=== PATIENT | male | born 1935 | race Caucasian/White ===

== ENCOUNTER → 2023-05-31 08:34 | Outpatient (CLI) | payer OTHER, SELFPAY ==
[2023-05-31 09:53] LABS: Add Manual Diff / Slide Review NO; Basophils Absolute Auto 0 /uL (0-100); Basophils Percent Auto 0.2 % (0-2); Eosinophils Absolute Auto 100 /uL (0-450); Eosinophils Percent Auto 2.5 % (2-4); Hemoglobin 13.5 g/dL (13.5-17.5); Lymphocytes Absolute Auto 1900 /uL (1100-4500); Lymphocytes Percent Auto 36.2 % (25-40); Mean Corpuscular HGB Conc 35.5 % (30-36); Mean Corpuscular Hemoglobin 32.6 PG (26-34); Mean Corpuscular Volume 91.8 fL (80-100); Monocytes Absolute Auto 400 /uL (0-900); Monocytes Percent Auto 6.7 % (3-14); Neutrophils Absolute Auto 2900 /uL (1500-7000); Neutrophils Percent Auto 54.4 % (50-75); Platelet Count 167 X10^3/uL (150-400); Red Blood Cell Count 4.14 X10^6/uL (4.5-5.9); Red Cell Distribution Width 13.2 % (11.6-14.8); White Blood Cell Count 5.3 X10^3/uL (4.5-11.0)
[2023-05-31 10:09] LABS: Alanine Aminotransferase 7 IU/L (<50); Albumin 4.2 g/dL (3.5-5.0); Albumin Globulin Ratio 1.6 (1.0-2.8); Alkaline Phosphatase 81 U/L (38-126); Aspartate Aminotransferase 31 IU/L (17-59); Bilirubin Total 1.1 mg/dL (0.2-1.3); Blood Urea Nitrogen 29 mg/dL (9-20); Calcium 9.6 mg/dL (8.4-10.2); Carbon Dioxide 29 mmol/L (22-32); Chloride 101 mmol/L (98-107); Cholesterol 101 mg/dL (140-199); Estimated Glomerular Filt Rate > 60 mL/min (>60); Globulin 2.7 g/dL (1.7-4.1); Glucose 99 mg/dL (80-110); HDL Cholesterol 43 mg/dL (40-60); HEMOLYSIS < 15 (0-50); LDL Cholesterol Calculated 44 mg/dL (<100); Potassium 4.2 mmol/L (3.4-5.1); Sodium 139 mmol/L (137-145); Total Protein 6.9 g/dL (6.3-8.2); Triglycerides 68 mg/dL (35-150)
[2023-05-31 10:39] LABS: TSH w/ Reflex to FT4 0.97 uIU/mL (0.47-4.68)
[2023-05-31 10:59] LABS: Vitamin B12 875 pg/mL (239-931)
== END ==
PROVIDERS: Family Provider Family Medicine; PCP Internal Medicine; Referring Provider Internal Medicine; Visit Provider Internal Medicine
DX: E78.5 Hyperlipidemia, unspecified (principal); E53.8 Deficiency of other specified B group vitamins; K59.03 Drug induced constipation; I10 Essential (primary) hypertension
CPT/HCPCS: 36415; 80053; 80061; 82607; 84443; 85025

== ENCOUNTER 2023-08-04 20:52 | Emergency (ER) | payer OTHER, SELFPAY ==
[2023-08-04 21:01] VITALS: BP 165/71; PULSE 90; RESP 18; TEMP 37.2; O2SAT 97; BMI 32.4
--- NOTE | 2023-08-04 21:10 | ED.HEATRA ---
HPI - Head Injury General Chief complaint: Head Injury Stated complaint: head injury Time Seen by Provider: 08/04/23 21:08 Source: patient Mode of arrival: Wheelchair History of Present Illness HPI Narrative: Patient is an 80-year-old male. History of Parkinson's disease. Has baseline balance issues. Not on anticoagulation. This evening was taking off his coat when he lost his balance and fell. He hit the back of his head against the wall. Unsure if there was any loss of consciousness. Has not had any vomiting. Has sustained an injury to the back of his head that is bleeding. Denies neck pain. No other extremity pain. Related Data Home Medications Medication Instructions Recorded Confirmed aspirin 81 mg tablet,delayed 81 mg PO Q DAY ##0 12/13/17 release atorvastatin 40 mg tablet 40 mg PO QDAY ##0 12/13/17 cholecalciferol (vitamin D3) 50 1 tab PO QDAY ##0 12/27/17 mcg (2,000 unit) tablet (Vitamin D3) Previous Rx's Medication Instructions Recorded nystatin 100,000 unit/gram topical 1 applic topical BID #15 grams 08/04/23 powder Review of Systems Constitutional Constitutional: Reports system reviewed and no additional complaints, except as documented Musculoskeletal Musculoskeletal: Reports system reviewed and no additional complaints, except as documented Integumentary/Breasts Skin/Breast: Reports system reviewed and no additional complaints, except as documented Neurologic Neurologic: Reports system reviewed and no additional complaints, except as documented Hematologic/Lymphatic On Anticoagulants: No Patient History Surgical History (Updated 01/31/18 @ 05:53 by Conversion Provider) History of lithotripsy Family History (Updated 04/30/15 @ 00:00 by Conversion Provider) Father Cancer Sister Stomach cancer Social History Smoking Status: Former smoker Smoking Status: Former smoker alcohol intake frequency: a few times a week Alcohol type: wine Substance Use Type: does not use Exam Initial Vital Signs Initial Vital Signs: Vital Signs Temperature 98.9 F 08/04/23 21:01 Pulse Rate 90 08/04/23 21:01 Respiratory Rate 18 08/04/23 21:01 Blood Pressure 165/71 H 08/04/23 21:01 Pulse Oximetry 97 08/04/23 21:01 Oxygen Delivery Method Room Air 08/04/23 21:01 HENCO Head: abrasion, contusion, hematoma and No laceration Face and sinus: normal facial exam Back/Spine/Pelvis Cervical Spine: No cervical spinal tenderness Skin Other: Irregular abrasion in the posterior aspect of the scalp. Neuro General: patient alert, patient awake, patient oriented x3 and moves all extremities Extrem General: normal to inspection and capillary refill normal Scores GCS [place] coma scale eye opening: Spontaneous [place] coma scale verbal response: Orientated [place] coma scale motor response: Obey commands [place] coma scale total score: 15 Course Orders Ordered: ED Orders 08/04/23 21:10 CT cervical spine wo con Stat CT head/brain wo con Stat Vital Signs Vital signs: Vital Signs - 8 hr 08/04/23 21:01 08/04/23 21:11 08/04/23 21:36 Temperature 98.9 F Pulse Rate 90 86 82 Respiratory Rate 18 16 23 Blood Pressure 165/71 H Pulse Oximetry 97 98 97 Oxygen Delivery Method Room Air Room Air Room Air 08/04/23 21:44 08/04/23 21:44 08/04/23 22:00 Temperature Pulse Rate 82 81 Respiratory Rate 13 13 Blood Pressure 156/69 H Pulse Oximetry 97 98 Oxygen Delivery Method Room Air Room Air 08/04/23 22:30 08/04/23 22:30 Temperature Pulse Rate 83 Respiratory Rate 14 Blood Pressure 142/65 H Pulse Oximetry 97 Oxygen Delivery Method Room Air MDM - Head Injury Imaging Data CT - cervical spine: Radiologist's Impression: PROCEDURE: CT CERVICAL SPINE WO CON INDICATIONS: fall with head injury TECHNIQUE: Noncontrast 3 mm thick sections acquired from the skull base to the T4 level. Sagittal and coronal reformats were then constructed. For radiation dose reduction, the following was used: automated exposure control, adjustment of mA and/or kV according to patient size. COMPARISON: None. FINDINGS: Image quality: Excellent. Bones: No fractures or dislocations. Grade 1 anterolisthesis of C4 on C5. Degenerative disc disease, [id number] at C3-C4, C5-C6 and C6-C7. Bilateral facet arthropathy, severe at C3-C4 and C4-C5. Visualized superior ribs are intact. Soft tissues: Prevertebral soft tissues are normal in thickness. No paravertebral hematomas. No apical pneumothoraces. IMPRESSION: 1. No cervical spine fractures. 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 CT scan - head: Radiologist's Impression: PROCEDURE: CT HEAD/BRAIN WO CON INDICATIONS: fall with head injury TECHNIQUE: Noncontrast 4.5 mm thick angled axial sections acquired from the foramen magnum to the vertex, with coronal and sagittal reformats. For radiation dose reduction, the following was used: automated exposure control, adjustment of mA and/or kV according to patient size. COMPARISON: None. FINDINGS: Image quality: Excellent. CSF spaces: Basal cisterns are patent. No extra-axial fluid collections. The ventricles are symmetric in size and shape. Brain: No intracranial bleeds or masses. There is mild cerebral volume loss for age, with resultant ventricular and sulcal prominence. There are severe periventricular and deep white matter chronic small vessel ischemic changes. There is intracranial internal carotid artery atherosclerosis. Skull and face: Calvarium and visualized facial bones appear intact, without suspicious lesions. Right parietal scalp contusion. Sinuses: Visualized sinuses and mastoids are clear. IMPRESSION: 1. No acute intracranial abnormalities. 2. Cerebral volume loss and chronic microvascular ischemic changes. [facility] Narrative Medical decision making narrative: CT scan shows no acute pathology. He is an abrasion on the posterior aspect of his scalp but there is no laceration that would require any sort of fixation here in the ER. Not on anticoagulation. He is no extremity injuries. Will discharge patient home with care instructions and return precautions. With the patient and his who is at bedside expressed understanding and agreement with plan. Discharge Plan Departure Patient Disposition: Home Clinical Impression: Contusion of scalp, Closed head injury, Abrasion of scalp Instructions: DI for Closed Head Injury Activity Restrictions/Additional Instructions: You can shower like normal. You can use soap and water over the abrasion. You can put ice over the area as well if needed. You have no restrictions on your activities. Continue to take all of your medications as directed. Use the nystatin powder 2 times a day until the rash in your groin is improved. Return to the emergency department for new symptoms. Prescriptions: New nystatin 100,000 unit/gram powder 1 applic topical BID Qty: 15 3RF No Action atorvastatin 40 MG tablet 40 mg PO QDAY Qty: 0 aspirin 81 MG tablet,delayed release (DR/EC) 81 mg PO Q DAY Qty: 0 cholecalciferol (vitamin D3) [Vitamin D3] 2,000 UNIT tablet 1 tab PO QDAY Qty: 0 Referrals: Al Melton MD [Primary Care Provider] - Stand Alone Forms: Patient Portal/API
[2023-08-04 21:11] VITALS: PULSE 86; RESP 16; O2SAT 98
[2023-08-04 21:36] VITALS: PULSE 82; RESP 23; O2SAT 97
[2023-08-04 21:44] VITALS: BP 156/69; PULSE 82; RESP 13; O2SAT 97
[2023-08-04 22:00] VITALS: PULSE 81; RESP 13; O2SAT 98
[2023-08-04 22:30] VITALS: BP 142/65; PULSE 83; RESP 14; O2SAT 97
== END 2023-08-04 22:59 | disposition home or self-care (01) ==
PROVIDERS: Emergency Provider Emergency Medicine; Family Provider Internal Medicine; PCP Internal Medicine
DX: S09.90XA Unspecified injury of head, initial encounter (principal); S00.03XA Contusion of scalp, initial encounter; S00.01XA Abrasion of scalp, initial encounter; W18.30XA Fall on same level, unspecified, initial encounter; G20.A1 Parkinson's disease without dyskinesia, without mention of fluctuations
CPT/HCPCS: 70450; 72125; 99281; 99284

== ENCOUNTER 2023-11-04 13:45 | Outpatient (RCR) | payer OTHER, SELFPAY ==
--- NOTE | 2023-08-29 17:55 | PT.OIE ---
Current Diagnoses Parkinsonism, unspecified (08/29/23) Unsteadiness on feet (08/29/23) Other abnormalities of gait and mobility (08/29/23) History of falling (08/29/23) Past Surgical History History of lithotripsy Visit Care Team Role Provider Type Al Melton MD Attending Provider Non-Staff Family Provider Primary Care Provider Referring Provider Specialty: Internal Medicine Address: [facility] [address], [place], [address] Email: Physical Therapy Initial Evaluation PT-OP-A Visit Information Start: 08/29/23 16:41 Freq: Status: Active Protocol: Document 08/29/23 14:30 DCW (Rec: 08/29/23 16:46 DCW [id number]) Out-Patient Physical Therapy Visit Information Visit Information Visit Type Initial Evaluation Visit Start Time 14:30 Visit Stop Time 15:15 Total Visit Minutes 45 Visit Number 1 Number of DESIGN AGENT Visits 0 Evaluation Information Evaluation Date 08/29/23 PT-OP-B Current Condition Start: 08/29/23 16:41 Freq: Status: Active Protocol: Document 08/29/23 14:30 DCW (Rec: 08/29/23 17:55 DCW [id number]) Current Condition History of Current Condition Current Complaints Falls, poor balance, fear of falling, unsteadiness secondary to Parkinson's History of Current Condition Pt is an 88 year old male presenting with a history of falls, imbalance, and gait difficulty secondary to Parkinson's Disease. Pt suffered a fall last month, when he was trying to put on a jacket, fell backwards, and hit his head on the wall, resulting in a trip to the ED. Pt reports he feels like he weaves back and forth, especially when first standing up, and often feels weak in the legs and arms. Unhappy with how slowly he moves. Typically uses a trekking pole for gait, but does have a 4WW that he occasionally uses as well. , who dropped pt off for his evaluation, also feels his speech has gotten worse recently, and he often needs to be asked to repeat himself. PT-OP-C Subjective Start: 08/29/23 16:41 Freq: Status: Active Protocol: Document 08/29/23 14:30 DCW (Rec: 08/29/23 17:55 DCW [id number]) OP-PT Subjective Patient Comments Patient Comments I have a recumbent bike that I can use at home. Patient Reported Progress Worse PT-OP-D Balance Start: 08/29/23 16:41 Freq: Status: Active Protocol: Document 08/29/23 14:30 DCW (Rec: 08/29/23 16:46 DCW [id number]) OP-PT Balance Assessment Sitting Balance Static Sitting Balance Ability Good Dynamic Sitting Balance Ability Good Standing Balance Static Standing Balance Ability Fair Dynamic Standing Balance Ability Good Balance Tests Ventura Balance Test Ventura Balance Test Score 32/56 Ventura Balance Assessment Evaluation Sitting to Standing Ability Several Tries w/Hands Unsupported Stance Supervision- 2 minutes Sitting Unsupported, Feet on Floor Safely- 2 minutes Standing to Sitting Ability Assist, Control w/Hands Transfer Ability Supervision, Verbal Cues Unsupported Stance- Eyes Closed Supervision, 10 seconds Unsupported Stance- Eyes Open Independent, <30 seconds Reaching Forward Standing Safely, 5 inches Pick- Up Object From Floor Requires Supervision Look Behind Shoulder - Standing Turns Sideways Only Turning 360 Degrees Turns slowly, but safely Unsupported Stance, Alternating Feet on (I)- 8 Steps in > 20 secs Stair Unsupported Tandem Stance Small Step- 30 seconds Unilateral Leg Stance Unable,assist to not fall Total Score Ventura Total Score (out of 56 points) 32 Brito Fall Scale Copyright Permission PT-OP-E Functional Tests Start: 08/29/23 16:41 Freq: Status: Active Protocol: Document 08/29/23 14:30 DCW (Rec: 08/29/23 16:46 DCW [id number]) Functional Tests 30 Second Sit to Stand Test Score 3 repetitions Comments UE assist Dynamic Gait Index (DGI) Score 20/24 DGI Impairment Rating 1 to <20% Impaired (Score 20- 23) PT-OP-M Strength Start: 08/29/23 16:41 Freq: Status: Active Protocol: Document 08/29/23 14:30 DCW (Rec: 08/29/23 17:55 DCW [id number]) Hip Strength Hip Manual Muscle Testing Right Flexion (L2) 4+ Good+ Abduction 4+ Good+ Adduction 4+ Good+ Left Flexion (L2) 4+ Good+ Abduction 4+ Good+ Adduction 4+ Good+ Knee Strength Knee Manual Muscle Testing Right Flexion (S2) 4+ Good+ Extension (L3) 4+ Good+ Left Flexion (S2) 4- Good- Extension (L3) 4+ Good+ PT-OP-T Assessment and Plan Start: 08/29/23 16:41 Freq: Status: Active Protocol: Document 08/29/23 14:30 DCW (Rec: 08/29/23 17:55 DCW [id number]) Physical Therapy Assessment Rehab Potential Rehabilitation Potential Good Evaluation Complexity Number of Personal Factors/Comorbidities 3 or More Number of Body Systems Impaired 4 or More Clinical Presentation at Evaluation Unstable Impairments Impairments Activity Tolerance,Balance, Coordination,Functional Activities,Functional Mobility ,Gait,Soft Tissue Mobility, Strength,Tone Goals Three Impairment Pt scores as a falls risk with a 32/56 on the Ventura Balance Scale Irrigation Manager Goal (LTG) Pt to improve Ventura Score by at least 8 points to 40/56 in order to demonstrate decreased risk of falls. LTG Duration 11/27/23 Two Impairment Pt performs 3 repetitions during 30 second sit to stand Irrigation Manager Goal (LTG) Pt to increase repetitions during 30 second Sit to Stand by at least 5 to 8 total repetitions to demonstrate improved activity tolerance LTG Duration 11/27/23 One Impairment Pt does not have an appropriate home exercise program Short Term Goal (STG) Pt to be independent and compliant with an appropriate HEP STG Duration 09/28/23 Assessment Summary Assessment Pt presents with signs and symptoms consistent with referring diagnosis of Parkinson's Disease. Per Ventura score (32/56), pt is at a significantly increased risk of falls, particularly with static balance. Pt does much better with dynamic balance, scoring a 20/24 on the DGI. Pt also shows a good LE strength base to work from scoring 4+/ 5 in all tested planes other than 4-/5 with left knee flexion. Pt should benefit from skilled therapy focusing on gait, stability, balance training, and improving activity tolerance, with the understanding of the limitations of improvement based on the progressive nature of Parkinson's Disease. If pt does not progress as expected, pt may benefit from a trial of LSVT BIG to work on a more Parkinson's-specific, intensive rehab course, and additionally potentially from a referral for Speech Therapy for LSVT LOUD, based on pt's 's complaints of worsening problems with pt's speech. Physical Therapy Plan Frequency and Duration Frequency of Treatment 2x/Week Plan of Care Start Date 08/29/23 Plan of Care End Date 11/27/23 Therapeutic Interventions Therapeutic Interventions Balance Training,Gait Training ,Home Exercise Program,Manual Therapy,Neuromuscular Re- education,Patient/Caregiver Education,Self-Care/Home Management,Soft Tissue Mobilization,Therapeutic Activities,Therapeutic Exercises Next Visit Focus/Plan Next Note Type Treatment Note Next Visit Plan Activity tolerance, gait training, balance challenges, strengthening
--- NOTE | 2023-08-29 17:56 | PT.OPPOC ---
Physical, Occupational & Speech Therapy At [facility] Current Diagnoses Parkinsonism, unspecified (08/29/23) Unsteadiness on feet (08/29/23) Other abnormalities of gait and mobility (08/29/23) History of falling (08/29/23) Visit Care Team Role Provider Type Al Melton MD Attending Provider Non-Staff Family Provider Primary Care Provider Referring Provider Specialty: Internal Medicine Address: [address] [place] [address] [address], [place], [address] Email: Plan Of Care PT-OP-T Assessment and Plan Start: 08/29/23 16:41 Freq: Status: Active Protocol: Document 08/29/23 14:30 DCW (Rec: 08/29/23 17:55 DCW [id number]) Physical Therapy Assessment Rehab Potential Rehabilitation Potential Good Evaluation Complexity Number of Personal Factors/Comorbidities 3 or More Number of Body Systems Impaired 4 or More Clinical Presentation at Evaluation Unstable Impairments Impairments Activity Tolerance,Balance, Coordination,Functional Activities,Functional Mobility ,Gait,Soft Tissue Mobility, Strength,Tone Goals Three Impairment Pt scores as a falls risk with a 32/56 on the Ventura Balance Scale Security Software Engineer Goal (LTG) Pt to improve Ventura Score by at least 8 points to 40/56 in order to demonstrate decreased risk of falls. LTG Duration 11/27/23 Two Impairment Pt performs 3 repetitions during 30 second sit to stand Security Software Engineer Goal (LTG) Pt to increase repetitions during 30 second Sit to Stand by at least 5 to 8 total repetitions to demonstrate improved activity tolerance LTG Duration 11/27/23 One Impairment Pt does not have an appropriate home exercise program Short Term Goal (STG) Pt to be independent and compliant with an appropriate HEP STG Duration 09/28/23 Assessment Summary Assessment Pt presents with signs and symptoms consistent with referring diagnosis of Parkinson's Disease. Per Ventura score (32/56), pt is at a significantly increased risk of falls, particularly with static balance. Pt does much better with dynamic balance, scoring a 20/24 on the DGI. Pt also shows a good LE strength base to work from scoring 4+/ 5 in all tested planes other than 4-/5 with left knee flexion. Pt should benefit from skilled therapy focusing on gait, stability, balance training, and improving activity tolerance, with the understanding of the limitations of improvement based on the progressive nature of Parkinson's Disease. If pt does not progress as expected, pt may benefit from a trial of LSVT BIG to work on a more Parkinson's-specific, intensive rehab course, and additionally potentially from a referral for Speech Therapy for LSVT LOUD, based on pt's 's complaints of worsening problems with pt's speech. Physical Therapy Plan Frequency and Duration Frequency of Treatment 2x/Week Plan of Care Start Date 08/29/23 Plan of Care End Date 11/27/23 Therapeutic Interventions Therapeutic Interventions Balance Training,Gait Training ,Home Exercise Program,Manual Therapy,Neuromuscular Re- education,Patient/Caregiver Education,Self-Care/Home Management,Soft Tissue Mobilization,Therapeutic Activities,Therapeutic Exercises Next Visit Focus/Plan Next Note Type Treatment Note Next Visit Plan Activity tolerance, gait training, balance challenges, strengthening Plan of Care Dates Plan of Care Start Date 08/29/23 Plan of Care End Date 11/27/23 Electronically Signed by: Raleigh Crawford, PT 08/29/23 4485 If you are in agreement with this Plan of Care, please return a signed and dated copy. I have reviewed this Plan of Care and certify that the skilled therapy services above are required to meet the patient?s needs. Physician Signature Date Printed Name and Credentials Clinical Instructor Signature Printed Name and Credentials
--- NOTE | 2023-09-01 15:14 | PT.OTN ---
Current Diagnoses Parkinsonism, unspecified (09/01/23) Unsteadiness on feet (09/01/23) Other abnormalities of gait and mobility (09/01/23) History of falling (09/01/23) Physical Therapy Treatment Note PT-OP-A Visit Information Start: 08/29/23 16:41 Freq: Status: Active Protocol: Document 09/01/23 14:30 DCW (Rec: 09/01/23 15:14 DCW [id number]) Out-Patient Physical Therapy Visit Information Visit Information Visit Type Treatment Note Visit Start Time 14:30 Visit Stop Time 15:15 Total Visit Minutes 45 Visit Number 2 Number of TICKET SCHEDULER Visits 0 Evaluation Information Evaluation Date 08/29/23 PT-OP-B Current Condition Start: 08/29/23 16:41 Freq: Status: Active Protocol: Document 08/29/23 14:30 DCW (Rec: 08/29/23 17:55 DCW [id number]) Current Condition History of Current Condition Current Complaints Falls, poor balance, fear of falling, unsteadiness secondary to Parkinson's History of Current Condition Pt is an 88 year old male presenting with a history of falls, imbalance, and gait difficulty secondary to Parkinson's Disease. Pt suffered a fall last month, when he was trying to put on a jacket, fell backwards, and hit his head on the wall, resulting in a trip to the ED. Pt reports he feels like he weaves back and forth, especially when first standing up, and often feels weak in the legs and arms. Unhappy with how slowly he moves. Typically uses a trekking pole for gait, but does have a 4WW that he occasionally uses as well. , who dropped pt off for his evaluation, also feels his speech has gotten worse recently, and he often needs to be asked to repeat himself. PT-OP-C Subjective Start: 08/29/23 16:41 Freq: Status: Active Protocol: Document 09/01/23 14:30 DCW (Rec: 09/01/23 15:14 DCW [id number]) OP-PT Subjective Patient Comments Patient Comments Feeling about normal for this stage of life. PT-OP-D Balance Start: 08/29/23 16:41 Freq: Status: Active Protocol: Document 08/29/23 14:30 DCW (Rec: 08/29/23 16:46 DCW [id number]) OP-PT Balance Assessment Sitting Balance Static Sitting Balance Ability Good Dynamic Sitting Balance Ability Good Standing Balance Static Standing Balance Ability Fair Dynamic Standing Balance Ability Good Balance Tests Ventura Balance Test Ventura Balance Test Score 32/56 Ventura Balance Assessment Evaluation Sitting to Standing Ability Several Tries w/Hands Unsupported Stance Supervision- 2 minutes Sitting Unsupported, Feet on Floor Safely- 2 minutes Standing to Sitting Ability Assist, Control w/Hands Transfer Ability Supervision, Verbal Cues Unsupported Stance- Eyes Closed Supervision, 10 seconds Unsupported Stance- Eyes Open Independent, <30 seconds Reaching Forward Standing Safely, 5 inches Pick- Up Object From Floor Requires Supervision Look Behind Shoulder - Standing Turns Sideways Only Turning 360 Degrees Turns slowly, but safely Unsupported Stance, Alternating Feet on (I)- 8 Steps in > 20 secs Stair Unsupported Tandem Stance Small Step- 30 seconds Unilateral Leg Stance Unable,assist to not fall Total Score Ventura Total Score (out of 56 points) 32 Brito Fall Scale Copyright Permission PT-OP-E Functional Tests Start: 08/29/23 16:41 Freq: Status: Active Protocol: Document 08/29/23 14:30 DCW (Rec: 08/29/23 16:46 DCW [id number]) Functional Tests 30 Second Sit to Stand Test Score 3 repetitions Comments UE assist Dynamic Gait Index (DGI) Score 20/24 DGI Impairment Rating 1 to <20% Impaired (Score 20- 23) PT-OP-M Strength Start: 08/29/23 16:41 Freq: Status: Active Protocol: Document 08/29/23 14:30 DCW (Rec: 08/29/23 17:55 DCW [id number]) Hip Strength Hip Manual Muscle Testing Right Flexion (L2) 4+ Good+ Abduction 4+ Good+ Adduction 4+ Good+ Left Flexion (L2) 4+ Good+ Abduction 4+ Good+ Adduction 4+ Good+ Knee Strength Knee Manual Muscle Testing Right Flexion (S2) 4+ Good+ Extension (L3) 4+ Good+ Left Flexion (S2) 4- Good- Extension (L3) 4+ Good+ PT-OP-Q Treatments Start: 08/29/23 16:41 Freq: Status: Active Protocol: Document 09/01/23 14:30 DCW (Rec: 09/01/23 15:14 DCW [id number]) Cardio Equipment Recumbent Stepper (Sci-Fit) Duration (Minutes) 5 Resistance 3 Seat Position 9 Gym Equipment Shuttle Balance Red Details WBOS, Staggered Therapeutic Exercises Other Exercises Resisted Ambulation Other Exercise Name Resisted Side-stepping Resistance Yellow Neuro Re-Education Treatment Balance Activities Foam Stance Details NBOS (EO/EC) Surface Blue foam Tandem Details Semi-tandem Stance Equipment // bars Hurdles Details Hurdles Comments Fwd, Sidestepping Stepping Stones Details Stepping stones on uneven blue foam hill Comments Hurdles PT-OP-T Assessment and Plan Start: 08/29/23 16:41 Freq: Status: Active Protocol: Document 09/01/23 14:30 DCW (Rec: 09/01/23 15:14 DCW [id number]) Physical Therapy Assessment Impairments Impairments Activity Tolerance,Balance, Coordination,Functional Activities,Functional Mobility ,Gait,Soft Tissue Mobility, Strength,Tone Goals Three Impairment Pt scores as a falls risk with a 32/56 on the Ventura Balance Scale Usp Goal (LTG) Pt to improve Ventura Score by at least 8 points to 40/56 in order to demonstrate decreased risk of falls. LTG Duration 11/27/23 Two Impairment Pt performs 3 repetitions during 30 second sit to stand Used Car Renovator Goal (LTG) Pt to increase repetitions during 30 second Sit to Stand by at least 5 to 8 total repetitions to demonstrate improved activity tolerance LTG Duration 11/27/23 One Impairment Pt does not have an appropriate home exercise program Short Term Goal (STG) Pt to be independent and compliant with an appropriate HEP STG Duration 09/28/23 Assessment Summary Assessment Pt tolerated treatment well, noted some difficulty with most balance challenges, but felt they were good for him and he was excited to try them at home. Physical Therapy Plan Frequency and Duration Frequency of Treatment 2x/Week Plan of Care Start Date 08/29/23 Plan of Care End Date 11/27/23 Therapeutic Interventions Therapeutic Interventions Balance Training,Gait Training ,Home Exercise Program,Manual Therapy,Neuromuscular Re- education,Patient/Caregiver Education,Self-Care/Home Management,Soft Tissue Mobilization,Therapeutic Activities,Therapeutic Exercises Next Visit Focus/Plan Next Note Type Treatment Note Next Visit Plan Activity tolerance, gait training, balance challenges, strengthening
--- NOTE | 2023-09-05 18:21 | PT.OTN ---
Current Diagnoses Parkinsonism, unspecified (09/05/23) Unsteadiness on feet (09/05/23) Other abnormalities of gait and mobility (09/05/23) History of falling (09/05/23) Physical Therapy Treatment Note PT-OP-A Visit Information Start: 08/29/23 16:41 Freq: Status: Active Protocol: Document 09/05/23 14:34 NBM (Rec: 09/05/23 15:20 NBM [id number]) Out-Patient Physical Therapy Visit Information Visit Information Visit Type Treatment Note Visit Start Time 14:35 Visit Stop Time 15:19 Total Visit Minutes 44 Visit Number 3 Number of PLANT SCIENCES PROFESSOR Visits 1 PT-OP-B Current Condition Start: 08/29/23 16:41 Freq: Status: Active Protocol: Document 08/29/23 14:30 DCW (Rec: 08/29/23 17:55 DCW [id number]) Current Condition History of Current Condition Current Complaints Falls, poor balance, fear of falling, unsteadiness secondary to Parkinson's History of Current Condition Pt is an 88 year old male presenting with a history of falls, imbalance, and gait difficulty secondary to Parkinson's Disease. Pt suffered a fall last month, when he was trying to put on a jacket, fell backwards, and hit his head on the wall, resulting in a trip to the ED. Pt reports he feels like he weaves back and forth, especially when first standing up, and often feels weak in the legs and arms. Unhappy with how slowly he moves. Typically uses a trekking pole for gait, but does have a 4WW that he occasionally uses as well. , who dropped pt off for his evaluation, also feels his speech has gotten worse recently, and he often needs to be asked to repeat himself. PT-OP-C Subjective Start: 08/29/23 16:41 Freq: Status: Active Protocol: Document 09/05/23 14:34 NBM (Rec: 09/05/23 15:20 NBM [id number]) OP-PT Subjective Patient Comments Patient Comments Luis reports he's tried the balance ex's at home and it wasn't wonderful, it was fair. PT-OP-D Balance Start: 08/29/23 16:41 Freq: Status: Active Protocol: Document 08/29/23 14:30 DCW (Rec: 08/29/23 16:46 DCW [id number]) OP-PT Balance Assessment Sitting Balance Static Sitting Balance Ability Good Dynamic Sitting Balance Ability Good Standing Balance Static Standing Balance Ability Fair Dynamic Standing Balance Ability Good Balance Tests Ventura Balance Test Ventura Balance Test Score 32/56 Ventura Balance Assessment Evaluation Sitting to Standing Ability Several Tries w/Hands Unsupported Stance Supervision- 2 minutes Sitting Unsupported, Feet on Floor Safely- 2 minutes Standing to Sitting Ability Assist, Control w/Hands Transfer Ability Supervision, Verbal Cues Unsupported Stance- Eyes Closed Supervision, 10 seconds Unsupported Stance- Eyes Open Independent, <30 seconds Reaching Forward Standing Safely, 5 inches Pick- Up Object From Floor Requires Supervision Look Behind Shoulder - Standing Turns Sideways Only Turning 360 Degrees Turns slowly, but safely Unsupported Stance, Alternating Feet on (I)- 8 Steps in > 20 secs Stair Unsupported Tandem Stance Small Step- 30 seconds Unilateral Leg Stance Unable,assist to not fall Total Score Ventura Total Score (out of 56 points) 32 Brito Fall Scale Copyright Permission PT-OP-E Functional Tests Start: 08/29/23 16:41 Freq: Status: Active Protocol: Document 08/29/23 14:30 DCW (Rec: 08/29/23 16:46 [facility] [id number]) Functional Tests 30 Second Sit to Stand Test Score 3 repetitions Comments UE assist Dynamic Gait Index (DGI) Score 20/24 DGI Impairment Rating 1 to <20% Impaired (Score 20- 23) PT-OP-M Strength Start: 08/29/23 16:41 Freq: Status: Active Protocol: Document 08/29/23 14:30 DCW (Rec: 08/29/23 17:55 DC [id number]) Hip Strength Hip Manual Muscle Testing Right Flexion (L2) 4+ Good+ Abduction 4+ Good+ Adduction 4+ Good+ Left Flexion (L2) 4+ Good+ Abduction 4+ Good+ Adduction 4+ Good+ Knee Strength Knee Manual Muscle Testing Right Flexion (S2) 4+ Good+ Extension (L3) 4+ Good+ Left Flexion (S2) 4- Good- Extension (L3) 4+ Good+ PT-OP-Q Treatments Start: 08/29/23 16:41 Freq: Status: Active Protocol: Document 09/05/23 14:34 NBM (Rec: 12/04/23 15:20 [facility] [id number]) Cardio Equipment Recumbent Stepper (Sci-Fit) Duration (Minutes) 5 Resistance 3 Seat Position 9 Gym Equipment Shuttle Balance Red Details A/P weightshifting WBOS, Staggered; M/L weightshifting Reps/Duration 8 min Comments Balloon volleyball: WBOS, NBOS 2 TOOL AND FIXTURE REPAIRER> 1HHA Therapeutic Exercises Other Exercises Resisted Ambulation Other Exercise Name Resisted Side-stepping Resistance Yellow Neuro Re-Education Treatment Balance Activities Foam Stance Details NBOS (EO/EC) Surface Blue foam Tandem Details Semi-tandem Stance Equipment // bars Hurdles Details Hurdles Comments Fwd, Sidestepping Stepping Stones Details Stepping stones on uneven blue foam hill Comments Hurdles Coordination Activities tandem walking Equipment // bars PT-OP-T Assessment and Plan Start: 08/29/23 16:41 Freq: Status: Active Protocol: Document 09/05/23 14:34 [facility] (Rec: 09/05/23 15:20 [facility] [id number]) Physical Therapy Assessment Goals Three Impairment Pt scores as a falls risk with a 32/56 on the Ventura Balance Scale Catalyst Concentration Operator Goal (LTG) Pt to improve Ventura Score by at least 8 points to 40/56 in order to demonstrate decreased risk of falls. LTG Duration 11/27/23 Two Impairment Pt performs 3 repetitions during 30 second sit to stand Detention Goal (LTG) Pt to increase repetitions during 30 second Sit to Stand by at least 5 to 8 total repetitions to demonstrate improved activity tolerance LTG Duration 11/27/23 One Impairment Pt does not have an appropriate home exercise program Short Term Goal (STG) Pt to be independent and compliant with an appropriate HEP STG Duration 09/28/23 Assessment Summary Assessment Luis requires cues for neutral foot positioning and eccentric control with resisted sidestepping. He requires cues for excessive hip rotation and neutral foot positioning with lateral steps bilaterally over hurdles and is able to clear 6 hurdles x2 with TOOL AND FIXTURE REPAIRER prn after cueing. He demonstrates increased confidence on Shuttle Balance in WBOS and NBOS with balloon volleyball. Physical Therapy Plan Frequency and Duration Frequency of Treatment 2x/Week Plan of Care Start Date 08/29/23 Plan of Care End Date 11/27/23 Therapeutic Interventions Therapeutic Interventions Balance Training,Gait Training ,Home Exercise Program,Manual Therapy,Neuromuscular Re- education,Patient/Caregiver Education,Self-Care/Home Management,Soft Tissue Mobilization,Therapeutic Activities,Therapeutic Exercises Next Visit Focus/Plan Next Note Type Treatment Note Next Visit Plan Activity tolerance, gait training, balance challenges, strengthening
--- NOTE | 2023-09-08 15:15 | PT.OTN ---
Current Diagnoses Parkinsonism, unspecified (09/08/23) Unsteadiness on feet (09/08/23) Other abnormalities of gait and mobility (09/08/23) History of falling (09/08/23) Physical Therapy Treatment Note PT-OP-A Visit Information Start: 08/29/23 16:41 Freq: Status: Active Protocol: Document 09/08/23 14:30 DCW (Rec: 09/08/23 15:15 DCW [id number]) Out-Patient Physical Therapy Visit Information Visit Information Visit Type Treatment Note Visit Start Time 14:30 Visit Stop Time 15:15 Total Visit Minutes 45 Visit Number 4 Number of SHERIFF'S OFFICER Visits 0 Evaluation Information Evaluation Date 08/29/23 PT-OP-B Current Condition Start: 08/29/23 16:41 Freq: Status: Active Protocol: Document 08/29/23 14:30 DCW (Rec: 08/29/23 17:55 DCW [id number]) Current Condition History of Current Condition Current Complaints Falls, poor balance, fear of falling, unsteadiness secondary to Parkinson's History of Current Condition Pt is an 88 year old male presenting with a history of falls, imbalance, and gait difficulty secondary to Parkinson's Disease. Pt suffered a fall last month, when he was trying to put on a jacket, fell backwards, and hit his head on the wall, resulting in a trip to the ED. Pt reports he feels like he weaves back and forth, especially when first standing up, and often feels weak in the legs and arms. Unhappy with how slowly he moves. Typically uses a trekking pole for gait, but does have a 4WW that he occasionally uses as well. , who dropped pt off for his evaluation, also feels his speech has gotten worse recently, and he often needs to be asked to repeat himself. PT-OP-C Subjective Start: 08/29/23 16:41 Freq: Status: Active Protocol: Document 09/08/23 14:30 DCW (Rec: 09/08/23 15:15 DCW [id number]) OP-PT Subjective Patient Comments Patient Comments Not as good today as I was yesterday. Notes some low back soreness today. PT-OP-D Balance Start: 08/29/23 16:41 Freq: Status: Active Protocol: Document 08/29/23 14:30 DCW (Rec: 08/29/23 16:46 DCW [id number]) OP-PT Balance Assessment Sitting Balance Static Sitting Balance Ability Good Dynamic Sitting Balance Ability Good Standing Balance Static Standing Balance Ability Fair Dynamic Standing Balance Ability Good Balance Tests Ventura Balance Test Ventura Balance Test Score 32/56 Ventura Balance Assessment Evaluation Sitting to Standing Ability Several Tries w/Hands Unsupported Stance Supervision- 2 minutes Sitting Unsupported, Feet on Floor Safely- 2 minutes Standing to Sitting Ability Assist, Control w/Hands Transfer Ability Supervision, Verbal Cues Unsupported Stance- Eyes Closed Supervision, 10 seconds Unsupported Stance- Eyes Open Independent, <30 seconds Reaching Forward Standing Safely, 5 inches Pick- Up Object From Floor Requires Supervision Look Behind Shoulder - Standing Turns Sideways Only Turning 360 Degrees Turns slowly, but safely Unsupported Stance, Alternating Feet on (I)- 8 Steps in > 20 secs Stair Unsupported Tandem Stance Small Step- 30 seconds Unilateral Leg Stance Unable,assist to not fall Total Score Ventura Total Score (out of 56 points) 32 Brito Fall Scale Copyright Permission PT-OP-E Functional Tests Start: 08/29/23 16:41 Freq: Status: Active Protocol: Document 08/29/23 14:30 DCW (Rec: 08/29/23 16:46 DCW [id number]) Functional Tests 30 Second Sit to Stand Test Score 3 repetitions Comments UE assist Dynamic Gait Index (DGI) Score 20/24 DGI Impairment Rating 1 to <20% Impaired (Score 20- 23) PT-OP-M Strength Start: 08/29/23 16:41 Freq: Status: Active Protocol: Document 08/29/23 14:30 DCW (Rec: 08/29/23 17:55 DCW [id number]) Hip Strength Hip Manual Muscle Testing Right Flexion (L2) 4+ Good+ Abduction 4+ Good+ Adduction 4+ Good+ Left Flexion (L2) 4+ Good+ Abduction 4+ Good+ Adduction 4+ Good+ Knee Strength Knee Manual Muscle Testing Right Flexion (S2) 4+ Good+ Extension (L3) 4+ Good+ Left Flexion (S2) 4- Good- Extension (L3) 4+ Good+ PT-OP-Q Treatments Start: 08/29/23 16:41 Freq: Status: Active Protocol: Document 09/08/23 14:30 DCW (Rec: 09/08/23 15:15 DCW [id number]) Cardio Equipment Recumbent Stepper (Sci-Fit) Duration (Minutes) 6 Resistance 3 Seat Position 9 Gym Equipment Shuttle Recovery Unilateral Squats Resistance 37# (one new) Bilateral Squats Resistance 62# (two new) Shuttle Balance Red Details WBOS, Staggered Therapeutic Exercises Other Exercises Sit Stand Other Exercise Name Sit to Stand Neuro Re-Education Treatment Balance Activities SLS Details SLS Equipment // bars Comments Added to HEP NBOS Details NBOS EO/EC Equipment // bars Comments Added to HEP Foam Stance Details NBOS (EO/EC) Surface Blue foam Tandem Details Semi-tandem Stance Equipment // bars Comments Added to HEP Hurdles Details Hurdles Comments Fwd, Sidestepping PT-OP-T Assessment and Plan Start: 08/29/23 16:41 Freq: Status: Active Protocol: Document 09/08/23 14:30 DCW (Rec: 09/08/23 15:15 DCW [id number]) Physical Therapy Assessment Impairments Impairments Activity Tolerance,Balance, Coordination,Functional Activities,Functional Mobility ,Gait,Soft Tissue Mobility, Strength,Tone Goals Three Impairment Pt scores as a falls risk with a 32/56 on the Ventura Balance Scale [place] Laborer Goal (LTG) Pt to improve Ventura Score by at least 8 points to 40/56 in order to demonstrate decreased risk of falls. LTG Duration 11/27/23 Two Impairment Pt performs 3 repetitions during 30 second sit to stand [place] Laborer Goal (LTG) Pt to increase repetitions during 30 second Sit to Stand by at least 5 to 8 total repetitions to demonstrate improved activity tolerance LTG Duration 11/27/23 One Impairment Pt does not have an appropriate home exercise program Short Term Goal (STG) Pt to be independent and compliant with an appropriate HEP STG Duration 09/28/23 Assessment Summary Assessment Pt thankful for HEP HO, doing well with balance challenges today. Was slightly limited with some movement due to low back stiffness, but loosened up as session proceeded. Continue to focus on functional movements and balance challenges. Physical Therapy Plan Frequency and Duration Frequency of Treatment 2x/Week Plan of Care Start Date 08/29/23 Plan of Care End Date 11/27/23 Therapeutic Interventions Therapeutic Interventions Balance Training,Gait Training ,Home Exercise Program,Manual Therapy,Neuromuscular Re- education,Patient/Caregiver Education,Self-Care/Home Management,Soft Tissue Mobilization,Therapeutic Activities,Therapeutic Exercises Next Visit Focus/Plan Next Note Type Treatment Note Next Visit Plan Activity tolerance, gait training, balance challenges, strengthening
--- NOTE | 2023-09-13 13:51 | PT.OTN ---
Current Diagnoses Parkinsonism, unspecified (09/13/23) Unsteadiness on feet (09/13/23) Other abnormalities of gait and mobility (09/13/23) History of falling (09/13/23) Physical Therapy Treatment Note PT-OP-A Visit Information Start: 08/29/23 16:41 Freq: Status: Active Protocol: Document 09/13/23 13:08 NBM (Rec: 09/13/23 13:51 NB [id number]) Out-Patient Physical Therapy Visit Information Visit Information Visit Type Treatment Note Visit Start Time 13:05 Visit Stop Time 13:46 Total Visit Minutes 41 Visit Number 5 Number of FIRE CONTROL SYSTEM INSTALLER Visits 1 PT-OP-B Current Condition Start: 08/29/23 16:41 Freq: Status: Active Protocol: Document 08/29/23 14:30 DCW (Rec: 08/29/23 17:55 DCW [id number]) Current Condition History of Current Condition Current Complaints Falls, poor balance, fear of falling, unsteadiness secondary to Parkinson's History of Current Condition Pt is an 88 year old male presenting with a history of falls, imbalance, and gait difficulty secondary to Parkinson's Disease. Pt suffered a fall last month, when he was trying to put on a jacket, fell backwards, and hit his head on the wall, resulting in a trip to the ED. Pt reports he feels like he weaves back and forth, especially when first standing up, and often feels weak in the legs and arms. Unhappy with how slowly he moves. Typically uses a trekking pole for gait, but does have a 4WW that he occasionally uses as well. , who dropped pt off for his evaluation, also feels his speech has gotten worse recently, and he often needs to be asked to repeat himself. PT-OP-C Subjective Start: 08/29/23 16:41 Freq: Status: Active Protocol: Document 09/13/23 13:08 NBM (Rec: 09/13/23 13:51 NB [id number]) OP-PT Subjective Patient Comments Patient Comments Pt reports doing his ex's but still feeling like he has weak muscles. PT-OP-D Balance Start: 08/29/23 16:41 Freq: Status: Active Protocol: Document 08/29/23 14:30 DCW (Rec: 08/29/23 16:46 [facility] [id number]) OP-PT Balance Assessment Sitting Balance Static Sitting Balance Ability Good Dynamic Sitting Balance Ability Good Standing Balance Static Standing Balance Ability Fair Dynamic Standing Balance Ability Good Balance Tests Ventura Balance Test Venutra Balance Test Score 32/56 Ventura Balance Assessment Evaluation Sitting to Standing Ability Several Tries w/Hands Unsupported Stance Supervision- 2 minutes Sitting Unsupported, Feet on Floor Safely- 2 minutes Standing to Sitting Ability Assist, Control w/Hands Transfer Ability Supervision, Verbal Cues Unsupported Stance- Eyes Closed Supervision, 10 seconds Unsupported Stance- Eyes Open Independent, <30 seconds Reaching Forward Standing Safely, 5 inches Pick- Up Object From Floor Requires Supervision Look Behind Shoulder - Standing Turns Sideways Only Turning 360 Degrees Turns slowly, but safely Unsupported Stance, Alternating Feet on (I)- 8 Steps in > 20 secs Stair Unsupported Tandem Stance Small Step- 30 seconds Unilateral Leg Stance Unable,assist to not fall Total Score Ventura Total Score (out of 56 points) 32 Birto Fall Scale Copyright Permission PT-OP-E Functional Tests Start: 08/29/23 16:41 Freq: Status: Active Protocol: Document 08/29/23 14:30 DCW (Rec: 08/29/23 16:46 [facility] [id number]) Functional Tests 30 Second Sit to Stand Test Score 3 repetitions Comments UE assist Dynamic Gait Index (DGI) Score 20/24 DGI Impairment Rating 1 to <20% Impaired (Score 20- 23) PT-OP-M Strength Start: 08/29/23 16:41 Freq: Status: Active Protocol: Document 08/29/23 14:30 DCW (Rec: 08/29/23 17:55 DC [id number]) Hip Strength Hip Manual Muscle Testing Right Flexion (L2) 4+ Good+ Abduction 4+ Good+ Adduction 4+ Good+ Left Flexion (L2) 4+ Good+ Abduction 4+ Good+ Adduction 4+ Good+ Knee Strength Knee Manual Muscle Testing Right Flexion (S2) 4+ Good+ Extension (L3) 4+ Good+ Left Flexion (S2) 4- Good- Extension (L3) 4+ Good+ PT-OP-Q Treatments Start: 08/29/23 16:41 Freq: Status: Active Protocol: Document 09/13/23 13:08 NBM (Rec: 09/13/23 13:51 NBM [id number]) Gym Equipment Shuttle Recovery Unilateral Squats Resistance 37# (one new) Shuttle Recovery Platform Stable Reps/Time cues for LE alignment & foot positioning connie Bilateral Squats Resistance 62# (two new) Shuttle Recovery Platform Stable Reps/Time cues for LE alignment Therapeutic Exercises Sitting Exercises hip adduction Sitting Exercise Name ball squeeze Side bilateral Equipment Used blue/white ball Reps/Minutes x10 clamshell Side bilateral Resistance lvl1 tb Reps/Minutes x10 Other Exercises Sit Stand Other Exercise Name Sit to Stand Reps/Minutes 2x5 Comments cues for glute activation and eccentric control Resisted Ambulation Other Exercise Name Resisted Side-stepping Resistance green Equipment Used handrail Reps/Minutes x10ft ea Comments vc for neutral foot position R >L Neuro Re-Education Treatment Balance Activities SLS Details SLS Equipment // bars Comments Added to HEP NBOS Details NBOS EO/EC Equipment // bars Comments Added to HEP Foam Stance Details NBOS (EO/EC) Surface Blue foam Tandem Details Semi-tandem Stance connie Equipment // bars Comments 2 DOWEL SANDER OPERATOR w head turns, appropriate ankle strategy PT-OP-T Assessment and Plan Start: 08/29/23 16:41 Freq: Status: Active Protocol: Document 09/13/23 13:08 [facility] (Rec: 09/13/23 13:51 [facility] [id number]) Physical Therapy Assessment Goals Three Impairment Pt scores as a falls risk with a 32/56 on the Ventura Balance Scale Halfway Goal (LTG) Pt to improve Ventura Score by at least 8 points to 40/56 in order to demonstrate decreased risk of falls. LTG Duration 11/27/23 Two Impairment Pt performs 3 repetitions during 30 second sit to stand Payment Specialist Goal (LTG) Pt to increase repetitions during 30 second Sit to Stand by at least 5 to 8 total repetitions to demonstrate improved activity tolerance LTG Duration 11/27/23 One Impairment Pt does not have an appropriate home exercise program Short Term Goal (STG) Pt to be independent and compliant with an appropriate HEP STG Duration 09/28/23 Assessment Summary Assessment Pt requires cues for LE alignment and foot positioning on Shuttle Recovery as he shows knee valgus bilaterally with knee flexion. vc for neutral foot position R>L with resisted sidesteps. He is able to perform 5 sit to sales and events coordinator a row with thigh support for standing and armrests for sitting showing more eccentric control with cueing. He requires two handhold assist in semi-tandem stance bilaterally when headturns are added. He is educated briefly in 2-pt gait sequencing with [facility] in [facility]. Physical Therapy Plan Frequency and Duration Frequency of Treatment 2x/Week Plan of Care Start Date 08/29/23 Plan of Care End Date 11/27/23 Therapeutic Interventions Therapeutic Interventions Balance Training,Gait Training ,Home Exercise Program,Manual Therapy,Neuromuscular Re- education,Patient/Caregiver Education,Self-Care/Home Management,Soft Tissue Mobilization,Therapeutic Activities,Therapeutic Exercises Next Visit Focus/Plan Next Note Type Treatment Note Next Visit Plan Activity tolerance, gait training, balance challenges, strengthening
--- NOTE | 2023-09-20 13:25 | PT-OP ANOTE ---
Pt did not show for tx today. DIRECTOR MACHINE called and spoke with , pt was on another phone call. Pt having tx's down in [facility] for PD, got back later day yesterday and pretty tired. stated forgot to help remind pt this am of his PT appt and so pt forgot. DIRECTOR MACHINE reminded of this 09/22 and next 09/27 PT appts for pt, verbalized confirmation has them on their calendar. DIRECTOR MACHINE discussed if need to cancel an appt to call as far advance notice including leaving message if able.
--- NOTE | 2023-09-22 14:30 | PT.OTN ---
Current Diagnoses Parkinsonism, unspecified (09/22/23) Unsteadiness on feet (09/22/23) Other abnormalities of gait and mobility (09/22/23) History of falling (09/22/23) Physical Therapy Treatment Note PT-OP-A Visit Information Start: 08/29/23 16:41 Freq: Status: Active Protocol: Document 09/22/23 13:47 SP (Rec: 09/22/23 14:31 SP [id number]) Out-Patient Physical Therapy Visit Information Visit Information Visit Type Treatment Note Visit Start Time 13:50 Visit Stop Time 14:30 Total Visit Minutes 43 Visit Number 7 Number of CODING QUALITY COORDINATOR Visits 3 Evaluation Information Evaluation Date 08/29/23 PT-OP-B Current Condition Start: 08/29/23 16:41 Freq: Status: Active Protocol: Document 08/29/23 14:30 DCW (Rec: 08/29/23 17:55 DCW [id number]) Current Condition History of Current Condition Current Complaints Falls, poor balance, fear of falling, unsteadiness secondary to Parkinson's History of Current Condition Pt is an 88 year old male presenting with a history of falls, imbalance, and gait difficulty secondary to Parkinson's Disease. Pt suffered a fall last month, when he was trying to put on a jacket, fell backwards, and hit his head on the wall, resulting in a trip to the ED. Pt reports he feels like he weaves back and forth, especially when first standing up, and often feels weak in the legs and arms. Unhappy with how slowly he moves. Typically uses a trekking pole for gait, but does have a 4WW that he occasionally uses as well. , who dropped pt off for his evaluation, also feels his speech has gotten worse recently, and he often needs to be asked to repeat himself. PT-OP-C Subjective Start: 08/29/23 16:41 Freq: Status: Active Protocol: Document 09/22/23 13:47 SP (Rec: 09/22/23 14:31 SP [id number]) OP-PT Subjective Patient Comments Patient Comments Pt reports does the recumbent bike 30 min 4/5 day per week and balance HEP sheets next to counter/chair, probably not as much as should, challenging with feet closer together. PT-OP-D Balance Start: 08/29/23 16:41 Freq: Status: Active Protocol: Document 08/29/23 14:30 DCW (Rec: 08/29/23 16:46 DCW [id number]) OP-PT Balance Assessment Sitting Balance Static Sitting Balance Ability Good Dynamic Sitting Balance Ability Good Standing Balance Static Standing Balance Ability Fair Dynamic Standing Balance Ability Good Balance Tests Ventura Balance Test Ventura Balance Test Score 32/56 Ventura Balance Assessment Evaluation Sitting to Standing Ability Several Tries w/Hands Unsupported Stance Supervision- 2 minutes Sitting Unsupported, Feet on Floor Safely- 2 minutes Standing to Sitting Ability Assist, Control w/Hands Transfer Ability Supervision, Verbal Cues Unsupported Stance- Eyes Closed Supervision, 10 seconds Unsupported Stance- Eyes Open Independent, <30 seconds Reaching Forward Standing Safely, 5 inches Pick- Up Object From Floor Requires Supervision Look Behind Shoulder - Standing Turns Sideways Only Turning 360 Degrees Turns slowly, but safely Unsupported Stance, Alternating Feet on (I)- 8 Steps in > 20 secs Stair Unsupported Tandem Stance Small Step- 30 seconds Unilateral Leg Stance Unable,assist to not fall Total Score Ventura Total Score (out of 56 points) 32 Brito Fall Scale Copyright Permission PT-OP-E Functional Tests Start: 08/29/23 16:41 Freq: Status: Active Protocol: Document 08/29/23 14:30 DCW (Rec: 08/29/23 16:46 DCW [id number]) Functional Tests 30 Second Sit to Stand Test Score 3 repetitions Comments UE assist Dynamic Gait Index (DGI) Score 20/24 DGI Impairment Rating 1 to <20% Impaired (Score 20- 23) PT-OP-M Strength Start: 08/29/23 16:41 Freq: Status: Active Protocol: Document 08/29/23 14:30 DCW (Rec: 08/29/23 17:55 DCW [id number]) Hip Strength Hip Manual Muscle Testing Right Flexion (L2) 4+ Good+ Abduction 4+ Good+ Adduction 4+ Good+ Left Flexion (L2) 4+ Good+ Abduction 4+ Good+ Adduction 4+ Good+ Knee Strength Knee Manual Muscle Testing Right Flexion (S2) 4+ Good+ Extension (L3) 4+ Good+ Left Flexion (S2) 4- Good- Extension (L3) 4+ Good+ PT-OP-Q Treatments Start: 08/29/23 16:41 Freq: Status: Active Protocol: Document 09/22/23 13:47 SP (Rec: 09/22/23 14:31 SP [id number]) Gym Equipment Shuttle Recovery Unilateral Squats Details cues for LE alignment & foot positioning connie Resistance 50# (2 dark blue) Shuttle Recovery Platform Stable Reps/Time 2x12 L, x12, 5 reps R Bilateral Squats Details cues knee alignment more medial w/ yellow ball squeeze Resistance 62# (2 dark blue) Shuttle Recovery Platform Stable Reps/Time 2x12 Therapeutic Exercises Other Exercises Resisted Ambulation Other Exercise Name Resisted Side-stepping Resistance green (aqua #2 09/22 ) Equipment Used PRN rail Reps/Minutes 2x10ft ea Comments max cues R>L LE increase DAV and ft clearance Neuro Re-Education Treatment Balance Activities steps Details fwd, lateral up/over Reps/Duration x10, x5 Comments light contact 1 Rail cued increase LLE foot clearance. SLS Details SLS Equipment corner back, chair front BUE hover chair back Reps/Duration 14 sec LLE, 13 sec RLE (small yellow ball under opp LE) Comments cued posturing /c cues for elongated posturing over stance LE /c TKE. NBOS Details NBOS EC: HEP reviewed Equipment back to corner, chair front Reps/Duration 30 sec Tandem Details Semi-tandem Stance connie Equipment corner back chair front Comments 2 BACK TUFTER w head turns, appropriate ankle strategy EC 30 sec each foot position Hurdles Details Hurdles Surface step to patterning fwd Comments noted lateral arm on//bar stability PT-OP-T Assessment and Plan Start: 08/29/23 16:41 Freq: Status: Active Protocol: Document 09/22/23 13:47 SP (Rec: 09/22/23 14:31 SP [id number]) Physical Therapy Assessment Goals Three Impairment Pt scores as a falls risk with a 32/56 on the Ventura Balance Scale Half-Way Goal (LTG) Pt to improve Ventura Score by at least 8 points to 40/56 in order to demonstrate decreased risk of falls. LTG Duration 11/27/23 Two Impairment Pt performs 3 repetitions during 30 second sit to stand Half-Way Goal (LTG) Pt to increase repetitions during 30 second Sit to Stand by at least 5 to 8 total repetitions to demonstrate improved activity tolerance LTG Duration 11/27/23 One Impairment Pt does not have an appropriate home exercise program Short Term Goal (STG) Pt to be independent and compliant with an appropriate HEP STG Duration 09/28/23 Assessment Summary Assessment Pt showed good effort during ther ex today. Cues and encouragement for decreased UE support, TKE noted quad and glut drive COG over DAV. Improved body awareness corrections with cues elongated posturing and equal wt between BLEs improved stability balance in corner. Physical Therapy Plan Frequency and Duration Frequency of Treatment 2x/Week Plan of Care Start Date 08/29/23 Plan of Care End Date 11/27/23 Therapeutic Interventions Therapeutic Interventions Balance Training,Gait Training ,Home Exercise Program,Manual Therapy,Neuromuscular Re- education,Patient/Caregiver Education,Self-Care/Home Management,Soft Tissue Mobilization,Therapeutic Activities,Therapeutic Exercises Next Visit Focus/Plan Next Note Type Treatment Note Next Visit Plan Activity tolerance, gait training, balance challenges, strengthening
--- NOTE | 2023-10-06 16:46 | PT.OTN ---
Current Diagnoses Parkinsonism, unspecified (10/06/23) Unsteadiness on feet (10/06/23) Other abnormalities of gait and mobility (10/06/23) History of falling (10/06/23) Physical Therapy Treatment Note PT-OP-A Visit Information Start: 08/29/23 16:41 Freq: Status: Active Protocol: Document 10/06/23 16:00 DCW (Rec: 10/06/23 16:46 DCW [id number]) Out-Patient Physical Therapy Visit Information Visit Information Visit Type Treatment Note Visit Start Time 16:00 Visit Stop Time 16:45 Total Visit Minutes 45 Visit Number 8 Number of HOMICIDE SQUAD SERGEANT Visits 0 Evaluation Information Evaluation Date 08/29/23 PT-OP-B Current Condition Start: 08/29/23 16:41 Freq: Status: Active Protocol: Document 08/29/23 14:30 DCW (Rec: 08/29/23 17:55 DCW [id number]) Current Condition History of Current Condition Current Complaints Falls, poor balance, fear of falling, unsteadiness secondary to Parkinson's History of Current Condition Pt is an 88 year old male presenting with a history of falls, imbalance, and gait difficulty secondary to Parkinson's Disease. Pt suffered a fall last month, when he was trying to put on a jacket, fell backwards, and hit his head on the wall, resulting in a trip to the ED. Pt reports he feels like he weaves back and forth, especially when first standing up, and often feels weak in the legs and arms. Unhappy with how slowly he moves. Typically uses a trekking pole for gait, but does have a 4WW that he occasionally uses as well. , who dropped pt off for his evaluation, also feels his speech has gotten worse recently, and he often needs to be asked to repeat himself. PT-OP-C Subjective Start: 08/29/23 16:41 Freq: Status: Active Protocol: Document 10/06/23 16:00 DCW (Rec: 10/06/23 16:46 DCW [id number]) OP-PT Subjective Patient Comments Patient Comments About normal, I still have the same kind of aches and pains, but I'm moving more carefully. PT-OP-D Balance Start: 08/29/23 16:41 Freq: Status: Active Protocol: Document 08/29/23 14:30 DCW (Rec: 08/29/23 16:46 DCW [id number]) OP-PT Balance Assessment Sitting Balance Static Sitting Balance Ability Good Dynamic Sitting Balance Ability Good Standing Balance Static Standing Balance Ability Fair Dynamic Standing Balance Ability Good Balance Tests Ventura Balance Test Ventura Balance Test Score 32/56 Ventura Balance Assessment Evaluation Sitting to Standing Ability Several Tries w/Hands Unsupported Stance Supervision- 2 minutes Sitting Unsupported, Feet on Floor Safely- 2 minutes Standing to Sitting Ability Assist, Control w/Hands Transfer Ability Supervision, Verbal Cues Unsupported Stance- Eyes Closed Supervision, 10 seconds Unsupported Stance- Eyes Open Independent, <30 seconds Reaching Forward Standing Safely, 5 inches Pick- Up Object From Floor Requires Supervision Look Behind Shoulder - Standing Turns Sideways Only Turning 360 Degrees Turns slowly, but safely Unsupported Stance, Alternating Feet on (I)- 8 Steps in > 20 secs Stair Unsupported Tandem Stance Small Step- 30 seconds Unilateral Leg Stance Unable,assist to not fall Total Score Ventura Total Score (out of 56 points) 32 Brito Fall Scale Copyright Permission PT-OP-E Functional Tests Start: 08/29/23 16:41 Freq: Status: Active Protocol: Document 08/29/23 14:30 DCW (Rec: 08/29/23 16:46 DCW [id number]) Functional Tests 30 Second Sit to Stand Test Score 3 repetitions Comments UE assist Dynamic Gait Index (DGI) Score 20/24 DGI Impairment Rating 1 to <20% Impaired (Score 20- 23) PT-OP-M Strength Start: 08/29/23 16:41 Freq: Status: Active Protocol: Document 08/29/23 14:30 DCW (Rec: 08/29/23 17:55 DCW [id number]) Hip Strength Hip Manual Muscle Testing Right Flexion (L2) 4+ Good+ Abduction 4+ Good+ Adduction 4+ Good+ Left Flexion (L2) 4+ Good+ Abduction 4+ Good+ Adduction 4+ Good+ Knee Strength Knee Manual Muscle Testing Right Flexion (S2) 4+ Good+ Extension (L3) 4+ Good+ Left Flexion (S2) 4- Good- Extension (L3) 4+ Good+ PT-OP-Q Treatments Start: 08/29/23 16:41 Freq: Status: Active Protocol: Document 10/06/23 16:00 DCW (Rec: 10/06/23 16:46 [facility] [id number]) Cardio Equipment Recumbent Stepper (Sci-Fit) Duration (Minutes) 6 Resistance 3 Seat Position 9 Gym Equipment Shuttle Recovery Unilateral Squats Details cues for LE alignment & foot positioning connie Resistance 50# (2 dark blue) Shuttle Recovery Platform Stable Reps/Time 2x12 L, x12, 5 reps R Bilateral Squats Resistance 75# (2 dark blue) Shuttle Recovery Platform Stable Reps/Time 2x15 Shuttle Balance Red Details WBOS, Staggered Therapeutic Exercises Other Exercises Step-ups Other Exercise Name Step-ups Side bilateral Equipment Used 6 step Resisted Ambulation Other Exercise Name Resisted Side-stepping Resistance green Equipment Used PRN rail Reps/Minutes 2x10ft ea Comments max cues R>L LE increase DAV and ft clearance Neuro Re-Education Treatment Balance Activities Foam Stance Details NBOS (EO/EC) Surface Black foam Hurdles Details Hurdles Surface Fwd, Side-stepping PT-OP-T Assessment and Plan Start: 08/29/23 16:41 Freq: Status: Active Protocol: Document 10/06/23 16:00 DC (Rec: 10/06/23 16:46 [facility] [id number]) Physical Therapy Assessment Impairments Impairments Activity Tolerance,Balance, Coordination,Functional Activities,Functional Mobility ,Gait,Soft Tissue Mobility, Strength,Tone Goals Three Impairment Pt scores as a falls risk with a 32/56 on the Ventura Balance Scale Vp Talent Management Goal (LTG) Pt to improve Ventura Score by at least 8 points to 40/56 in order to demonstrate decreased risk of falls. LTG Duration 11/27/23 Two Impairment Pt performs 3 repetitions during 30 second sit to stand Fdc Goal (LTG) Pt to increase repetitions during 30 second Sit to Stand by at least 5 to 8 total repetitions to demonstrate improved activity tolerance LTG Duration 11/27/23 One Impairment Pt does not have an appropriate home exercise program Short Term Goal (STG) Pt to be independent and compliant with an appropriate HEP STG Duration 09/28/23 Assessment Summary Assessment Good tolerance to activity today, minimal need for rest breaks. Good response to balance challenges today. Physical Therapy Plan Frequency and Duration Frequency of Treatment 2x/Week Plan of Care Start Date 08/29/23 Plan of Care End Date 11/27/23 Therapeutic Interventions Therapeutic Interventions Balance Training,Gait Training ,Home Exercise Program,Manual Therapy,Neuromuscular Re- education,Patient/Caregiver Education,Self-Care/Home Management,Soft Tissue Mobilization,Therapeutic Activities,Therapeutic Exercises Next Visit Focus/Plan Next Note Type Treatment Note Next Visit Plan Activity tolerance, gait training, balance challenges, strengthening
--- NOTE | 2023-10-18 16:00 | PT.OTN ---
Current Diagnoses Parkinsonism, unspecified (10/18/23) Unsteadiness on feet (10/18/23) Other abnormalities of gait and mobility (10/18/23) History of falling (10/18/23) Physical Therapy Treatment Note PT-OP-A Visit Information Start: 08/29/23 16:41 Freq: Status: Active Protocol: Document 10/18/23 15:15 DCW (Rec: 10/18/23 16:00 DCW [id number]) Out-Patient Physical Therapy Visit Information Visit Information Visit Type Progress Note Visit Start Time 15:15 Visit Stop Time 16:00 Total Visit Minutes 45 Visit Number 10 Number of SUPERVISOR SANDBLASTER Visits 0 Evaluation Information Evaluation Date 08/29/23 PT-OP-B Current Condition Start: 08/29/23 16:41 Freq: Status: Active Protocol: Document 08/29/23 14:30 DCW (Rec: 08/29/23 17:55 DCW [id number]) Current Condition History of Current Condition Current Complaints Falls, poor balance, fear of falling, unsteadiness secondary to Parkinson's History of Current Condition Pt is an 88 year old male presenting with a history of falls, imbalance, and gait difficulty secondary to Parkinson's Disease. Pt suffered a fall last month, when he was trying to put on a jacket, fell backwards, and hit his head on the wall, resulting in a trip to the ED. Pt reports he feels like he weaves back and forth, especially when first standing up, and often feels weak in the legs and arms. Unhappy with how slowly he moves. Typically uses a trekking pole for gait, but does have a 4WW that he occasionally uses as well. , who dropped pt off for his evaluation, also feels his speech has gotten worse recently, and he often needs to be asked to repeat himself. PT-OP-C Subjective Start: 08/29/23 16:41 Freq: Status: Active Protocol: Document 10/18/23 15:15 DCW (Rec: 10/18/23 16:00 DCW [id number]) OP-PT Subjective Patient Comments Patient Comments Feeling about normal for me. PT-OP-D Balance Start: 08/29/23 16:41 Freq: Status: Active Protocol: Document 08/29/23 14:30 DCW (Rec: 08/29/23 16:46 DCW [id number]) OP-PT Balance Assessment Sitting Balance Static Sitting Balance Ability Good Dynamic Sitting Balance Ability Good Standing Balance Static Standing Balance Ability Fair Dynamic Standing Balance Ability Good Balance Tests Ventura Balance Test Ventura Balance Test Score 32/56 Ventura Balance Assessment Evaluation Sitting to Standing Ability Several Tries w/Hands Unsupported Stance Supervision- 2 minutes Sitting Unsupported, Feet on Floor Safely- 2 minutes Standing to Sitting Ability Assist, Control w/Hands Transfer Ability Supervision, Verbal Cues Unsupported Stance- Eyes Closed Supervision, 10 seconds Unsupported Stance- Eyes Open Independent, <30 seconds Reaching Forward Standing Safely, 5 inches Pick- Up Object From Floor Requires Supervision Look Behind Shoulder - Standing Turns Sideways Only Turning 360 Degrees Turns slowly, but safely Unsupported Stance, Alternating Feet on (I)- 8 Steps in > 20 secs Stair Unsupported Tandem Stance Small Step- 30 seconds Unilateral Leg Stance Unable,assist to not fall Total Score Ventura Total Score (out of 56 points) 32 Brito Fall Scale Copyright Permission PT-OP-E Functional Tests Start: 08/29/23 16:41 Freq: Status: Active Protocol: Document 08/29/23 14:30 DCW (Rec: 08/29/23 16:46 DCW [id number]) Functional Tests 30 Second Sit to Stand Test Score 3 repetitions Comments UE assist Dynamic Gait Index (DGI) Score 20/24 DGI Impairment Rating 1 to <20% Impaired (Score 20- 23) PT-OP-M Strength Start: 08/29/23 16:41 Freq: Status: Active Protocol: Document 08/29/23 14:30 DCW (Rec: 08/29/23 17:55 DCW [id number]) Hip Strength Hip Manual Muscle Testing Right Flexion (L2) 4+ Good+ Abduction 4+ Good+ Adduction 4+ Good+ Left Flexion (L2) 4+ Good+ Abduction 4+ Good+ Adduction 4+ Good+ Knee Strength Knee Manual Muscle Testing Right Flexion (S2) 4+ Good+ Extension (L3) 4+ Good+ Left Flexion (S2) 4- Good- Extension (L3) 4+ Good+ PT-OP-Q Treatments Start: 08/29/23 16:41 Freq: Status: Active Protocol: Document 10/18/23 15:15 DCW (Rec: 10/18/23 16:00 DCW [id number]) Cardio Equipment Recumbent Stepper (Sci-Fit) Duration (Minutes) 6 Resistance 3 Seat Position 9 Therapeutic Activity Therapeutic Activity Sit-Stand Name 30 second Sit to Stand Reps/Minutes x10 Neuro Re-Education Treatment Balance Activities Retro Details Retro Ambulation Equipment // bars Ventura Details 38/56 Foam Stance Details NBOS (EO/EC) Surface Black foam Tandem Details Tandem Stance Equipment // bars Hurdles Details Hurdles Surface Fwd, Side-stepping PT-OP-T Assessment and Plan Start: 08/29/23 16:41 Freq: Status: Active Protocol: Document 10/18/23 15:15 DCW (Rec: 10/18/23 16:00 DCW [id number]) Physical Therapy Assessment Impairments Impairments Activity Tolerance,Balance, Coordination,Functional Activities,Functional Mobility ,Gait,Soft Tissue Mobility, Strength,Tone Goals Three Impairment Pt scores as a falls risk with a 32/56 on the Ventura Balance Scale Care Home Goal (LTG) Pt to improve Ventura Score by at least 8 points to 40/56 in order to demonstrate decreased risk of falls. LTG Duration 11/27/23 Two Impairment Pt performs 3 repetitions during 30 second sit to stand Care Home Goal (LTG) Pt to increase repetitions during 30 second Sit to Stand by at least 5 to 8 total repetitions to demonstrate improved activity tolerance LTG Duration Met One Impairment Pt does not have an appropriate home exercise program Short Term Goal (STG) Pt to be independent and compliant with an appropriate HEP STG Duration 09/28/23 Assessment Summary Assessment Great overall response to therapeutic intervention. Pt has already met goal #2, increasing 30StS score from 3 repetitions to 10 repetitions . Pt also demonstrates a statistically significant change in Ventura Balance score, improving from 32/56 to 38/56. Continue current POC to help improve pt's functional mobility and decrease falls risk. Physical Therapy Plan Frequency and Duration Frequency of Treatment 2x/Week Plan of Care Start Date 08/29/23 Plan of Care End Date 11/27/23 Therapeutic Interventions Therapeutic Interventions Balance Training,Gait Training ,Home Exercise Program,Manual Therapy,Neuromuscular Re- education,Patient/Caregiver Education,Self-Care/Home Management,Soft Tissue Mobilization,Therapeutic Activities,Therapeutic Exercises Next Visit Focus/Plan Next Note Type Treatment Note Next Visit Plan Activity tolerance, gait training, balance challenges, strengthening
--- NOTE | 2023-10-24 13:19 | PT-OP ANOTE ---
Called and spoke with pt re: missed appt and he stated he thought it was tomorrow as appts are usually Tuesdays. Pt rescheduled w/ this EQUIPMENT MAINTENANCE TECHNICIAN to tomorrow Tuesday10/25/23 at 1300pm, medical front desk specialist notified.
--- NOTE | 2023-11-04 14:27 | PT.OTN ---
Current Diagnoses Parkinsonism, unspecified (11/04/23) Unsteadiness on feet (11/04/23) Other abnormalities of gait and mobility (11/04/23) History of falling (11/04/23) Physical Therapy Treatment Note PT-OP-A Visit Information Start: 08/29/23 16:41 Freq: Status: Active Protocol: Document 11/04/23 13:45 DCW (Rec: 11/04/23 14:27 DCW [id number]) Out-Patient Physical Therapy Visit Information Visit Information Visit Type Treatment Note Visit Start Time 13:45 Visit Stop Time 14:30 Visit Number 12 Number of SENIOR REACTOR OPERATOR Visits 0 Evaluation Information Evaluation Date 08/29/23 PT-OP-B Current Condition Start: 08/29/23 16:41 Freq: Status: Active Protocol: Document 08/29/23 14:30 DCW (Rec: 08/29/23 17:55 DCW [id number]) Current Condition History of Current Condition Current Complaints Falls, poor balance, fear of falling, unsteadiness secondary to Parkinson's History of Current Condition Pt is an 88 year old male presenting with a history of falls, imbalance, and gait difficulty secondary to Parkinson's Disease. Pt suffered a fall last month, when he was trying to put on a jacket, fell backwards, and hit his head on the wall, resulting in a trip to the ED. Pt reports he feels like he weaves back and forth, especially when first standing up, and often feels weak in the legs and arms. Unhappy with how slowly he moves. Typically uses a trekking pole for gait, but does have a 4WW that he occasionally uses as well. , who dropped pt off for his evaluation, also feels his speech has gotten worse recently, and he often needs to be asked to repeat himself. PT-OP-C Subjective Start: 08/29/23 16:41 Freq: Status: Active Protocol: Document 11/04/23 13:45 DCW (Rec: 11/04/23 14:27 DCW [id number]) OP-PT Subjective Patient Comments Patient Comments Pt reports walking is still pretty slow, balance seems to change day to day. PT-OP-D Balance Start: 08/29/23 16:41 Freq: Status: Active Protocol: Document 08/29/23 14:30 DCW (Rec: 08/29/23 16:46 DCW [id number]) OP-PT Balance Assessment Sitting Balance Static Sitting Balance Ability Good Dynamic Sitting Balance Ability Good Standing Balance Static Standing Balance Ability Fair Dynamic Standing Balance Ability Good Balance Tests Ventura Balance Test Ventura Balance Test Score 32/56 Ventura Balance Assessment Evaluation Sitting to Standing Ability Several Tries w/Hands Unsupported Stance Supervision- 2 minutes Sitting Unsupported, Feet on Floor Safely- 2 minutes Standing to Sitting Ability Assist, Control w/Hands Transfer Ability Supervision, Verbal Cues Unsupported Stance- Eyes Closed Supervision, 10 seconds Unsupported Stance- Eyes Open Independent, <30 seconds Reaching Forward Standing Safely, 5 inches Pick- Up Object From Floor Requires Supervision Look Behind Shoulder - Standing Turns Sideways Only Turning 360 Degrees Turns slowly, but safely Unsupported Stance, Alternating Feet on (I)- 8 Steps in > 20 secs Stair Unsupported Tandem Stance Small Step- 30 seconds Unilateral Leg Stance Unable,assist to not fall Total Score Ventura Total Score (out of 56 points) 32 Brito Fall Scale Copyright Permission PT-OP-E Functional Tests Start: 08/29/23 16:41 Freq: Status: Active Protocol: Document 08/29/23 14:30 DCW (Rec: 08/29/23 16:46 DCW [id number]) Functional Tests 30 Second Sit to Stand Test Score 3 repetitions Comments UE assist Dynamic Gait Index (DGI) Score 20/24 DGI Impairment Rating 1 to <20% Impaired (Score 20- 23) PT-OP-M Strength Start: 08/29/23 16:41 Freq: Status: Active Protocol: Document 08/29/23 14:30 DCW (Rec: 08/29/23 17:55 DCW [id number]) Hip Strength Hip Manual Muscle Testing Right Flexion (L2) 4+ Good+ Abduction 4+ Good+ Adduction 4+ Good+ Left Flexion (L2) 4+ Good+ Abduction 4+ Good+ Adduction 4+ Good+ Knee Strength Knee Manual Muscle Testing Right Flexion (S2) 4+ Good+ Extension (L3) 4+ Good+ Left Flexion (S2) 4- Good- Extension (L3) 4+ Good+ PT-OP-Q Treatments Start: 08/29/23 16:41 Freq: Status: Active Protocol: Document 11/04/23 13:45 DCW (Rec: 11/04/23 14:27 DCW [id number]) Cardio Equipment Recumbent Stepper (Sci-Fit) Duration (Minutes) 6 Resistance 5 Seat Position 9 Gym Equipment Shuttle Recovery Unilateral Squats Details cues for LE alignment & foot positioning connie Resistance 50# (1 dark blue) Shuttle Recovery Platform Stable Reps/Time 2x10 ea Bilateral Squats Details w/ ball squeeze for improved LE alignment Resistance 75# (3 dark blue) Shuttle Recovery Platform Stable Reps/Time 2x10 Shuttle Balance Red Details WBOS, Staggered Neuro Re-Education Treatment Balance Activities Foam Stance Details NBOS (EO/EC), X1, Marching Surface Large Blue Foam Tandem Details Tandem Stance Equipment // bars Hurdles Details Hurdles Surface Fwd, Side-stepping PT-OP-T Assessment and Plan Start: 08/29/23 16:41 Freq: Status: Active Protocol: Document 11/04/23 13:45 DCW (Rec: 11/04/23 14:27 DCW [id number]) Physical Therapy Assessment Impairments Impairments Activity Tolerance,Balance, Coordination,Functional Activities,Functional Mobility ,Gait,Soft Tissue Mobility, Strength,Tone Goals Three Impairment Pt scores as a falls risk with a 32/56 on the Ventura Balance Scale Division Order Analyst Goal (LTG) Pt to improve Ventura Score by at least 8 points to 40/56 in order to demonstrate decreased risk of falls. LTG Duration 11/27/23 Two Impairment Pt performs 3 repetitions during 30 second sit to stand Division Order Analyst Goal (LTG) Pt to increase repetitions during 30 second Sit to Stand by at least 5 to 8 total repetitions to demonstrate improved activity tolerance LTG Duration Met One Impairment Pt does not have an appropriate home exercise program Short Term Goal (STG) Pt to be independent and compliant with an appropriate HEP STG Duration 09/28/23 Assessment Summary Assessment Pt challenged with new exercises on large foam (X1, marching). Pt tends to struggle with letting go of rail if slightly off balance. Physical Therapy Plan Frequency and Duration Frequency of Treatment 2x/Week Plan of Care Start Date 08/29/23 Plan of Care End Date 11/27/23 Therapeutic Interventions Therapeutic Interventions Balance Training,Gait Training ,Home Exercise Program,Manual Therapy,Neuromuscular Re- education,Patient/Caregiver Education,Self-Care/Home Management,Soft Tissue Mobilization,Therapeutic Activities,Therapeutic Exercises Next Visit Focus/Plan Next Note Type Treatment Note Next Visit Plan Activity tolerance, gait training, balance challenges, strengthening
--- NOTE | 2024-03-05 17:52 | PT.OPDS ---
Current Diagnoses Parkinsonism, unspecified (11/04/23) Unsteadiness on feet (11/04/23) Other abnormalities of gait and mobility (11/04/23) History of falling (11/04/23) Visit Care Team Role Provider Type Al Melton MD Attending Provider Non-Staff Family Provider Primary Care Provider Referring Provider Specialty: Internal Medicine Address: [facility] [address], [place], [address] Email: Visit Number Visit Number 12 Discharge Summary PT-OP-B Current Condition Start: 08/29/23 16:41 Freq: Status: Active Protocol: Document 08/29/23 14:30 DCW (Rec: 08/29/23 17:55 DCW [id number]) Current Condition History of Current Condition Current Complaints Falls, poor balance, fear of falling, unsteadiness secondary to Parkinson's History of Current Condition Pt is an 88 year old male presenting with a history of falls, imbalance, and gait difficulty secondary to Parkinson's Disease. Pt suffered a fall last month, when he was trying to put on a jacket, fell backwards, and hit his head on the wall, resulting in a trip to the ED. Pt reports he feels like he weaves back and forth, especially when first standing up, and often feels weak in the legs and arms. Unhappy with how slowly he moves. Typically uses a trekking pole for gait, but does have a 4WW that he occasionally uses as well. , who dropped pt off for his evaluation, also feels his speech has gotten worse recently, and he often needs to be asked to repeat himself. PT-OP-C Subjective Start: 08/29/23 16:41 Freq: Status: Active Protocol: Document 11/04/23 13:45 DCW (Rec: 11/04/23 14:27 DCW [id number]) OP-PT Subjective Patient Comments Patient Comments Pt reports walking is still pretty slow, balance seems to change day to day. PT-OP-D Balance Start: 08/29/23 16:41 Freq: Status: Active Protocol: Document 08/29/23 14:30 DCW (Rec: 08/29/23 16:46 DCW [id number]) OP-PT Balance Assessment Sitting Balance Static Sitting Balance Ability Good Dynamic Sitting Balance Ability Good Standing Balance Static Standing Balance Ability Fair Dynamic Standing Balance Ability Good Balance Tests Ventura Balance Test Ventura Balance Test Score 32/56 Ventura Balance Assessment Evaluation Sitting to Standing Ability Several Tries w/Hands Unsupported Stance Supervision- 2 minutes Sitting Unsupported, Feet on Floor Safely- 2 minutes Standing to Sitting Ability Assist, Control w/Hands Transfer Ability Supervision, Verbal Cues Unsupported Stance- Eyes Closed Supervision, 10 seconds Unsupported Stance- Eyes Open Independent, <30 seconds Reaching Forward Standing Safely, 5 inches Pick- Up Object From Floor Requires Supervision Look Behind Shoulder - Standing Turns Sideways Only Turning 360 Degrees Turns slowly, but safely Unsupported Stance, Alternating Feet on (I)- 8 Steps in > 20 secs Stair Unsupported Tandem Stance Small Step- 30 seconds Unilateral Leg Stance Unable,assist to not fall Total Score Ventura Total Score (out of 56 points) 32 Brito Fall Scale Copyright Permission PT-OP-E Functional Tests Start: 08/29/23 16:41 Freq: Status: Active Protocol: Document 08/29/23 14:30 DCW (Rec: 08/29/23 16:46 DCW [id number]) Functional Tests 30 Second Sit to Stand Test Score 3 repetitions Comments UE assist Dynamic Gait Index (DGI) Score 20/24 DGI Impairment Rating 1 to <20% Impaired (Score 20- 23) PT-OP-M Strength Start: 08/29/23 16:41 Freq: Status: Active Protocol: Document 08/29/23 14:30 DCW (Rec: 08/29/23 17:55 DCW [id number]) Hip Strength Hip Manual Muscle Testing Right Flexion (L2) 4+ Good+ Abduction 4+ Good+ Adduction 4+ Good+ Left Flexion (L2) 4+ Good+ Abduction 4+ Good+ Adduction 4+ Good+ Knee Strength Knee Manual Muscle Testing Right Flexion (S2) 4+ Good+ Extension (L3) 4+ Good+ Left Flexion (S2) 4- Good- Extension (L3) 4+ Good+ PT-OP-T Assessment and Plan Start: 08/29/23 16:41 Freq: Status: Active Protocol: Document 03/05/24 17:50 DCW (Rec: 03/05/24 17:52 DCW [id number]) Physical Therapy Assessment Assessment Summary Assessment Pt has not been seen for physical therapy in more than four months. Will be discharged from skilled therapy at this time. Pt will require a new referral in order to return. Physical Therapy Plan Discharge Physical Therapy Discharge Reasons No Longer Attending PT
== END 2024-03-09 12:27 | disposition home or self-care (01) ==
LOC: PHYS 13:45
PROVIDERS: Family Provider Internal Medicine; PCP Internal Medicine; Referring Provider Internal Medicine; Visit Provider Internal Medicine
DX: G20.C Parkinsonism, unspecified (principal); R26.89 Other abnormalities of gait and mobility; Z91.81 History of falling; R26.81 Unsteadiness on feet
CPT/HCPCS: 97110; 97112; 97116; 97163